=== PATIENT | female | born 1945 | race Caucasian/White ===

== ENCOUNTER 2019-03-18 14:45 | Observation (INO) | payer OTHER, MEDICARE ==
--- NOTE | 2019-03-18 15:23 | EDPHY ---
H & P Time Seen by Provider: 03/18/19 15:06 HPI/ROS: CHIEF COMPLAINT: Fall from horse HISTORY OF PRESENT ILLNESS: The patient is a 73-year-old female who presents emergency department after being thrown from her horse. She landed on her left side. Patient denies striking her head or losing consciousness. Patient complains primarily of left shoulder pain, left posterior rib pain, and left flank pain. Patient's pain is moderate. It becomes severe with movement. The patient was able to stand after the fall get back on her horse. Patient subsequently went to the bathroom and had gross hematuria. Patient denies chest pain or shortness of breath. She denies neck or back pain. REVIEW OF SYSTEMS: 10 systems were reveiwed and are negative with the exception of the elements mentioned in the history of present illness. Past Medical/Surgical History: Denies Smoking Status: Never smoked Physical Exam: Vitals noted GENERAL: Mild acute distress, alert. HEAD: No evidence of trauma. EYES: PERRLA, EOMI, normal to inspection. ENT: Airway intact, no dental or oral injury, no malocclusion, no hemotympanum , normal external examination. NECK: The trachea is midline. There is no crepitus. The C-spine is nontender. NEXUS criteria is negative (no midline tenderness, no distracting injury, no altered mental status, no recent alcohol use, no focal neurologic deficit). RESPIRATORY: [Clear to auscultation bilaterally, no rales, rhonchi or wheezing. Chest wall: Normal to appearance. Mild left lateral/posterior chest wall tenderness to palpation CVS: Regular rate and rhythm, no rubs, murmurs, or gallops. ABDOMEN: Soft, left upper quadrant tenderness to palpation with no rebound or guarding, nondistended, no bruising or abrasions. Pelvis: Stable. No tenderness palpation. GENITAL/RECTAL: Normal external exam. BACK: Normal to inspection, no spinal tenderness, no spinal step off, no notable bruising or abrasions. SKIN: Normal color, warm. Mild diaphoresis. No pallor. EXTREMITIES: Right upper extremity: Atraumatic. No visible signs of trauma. No tenderness palpation. Neurovascular intact distally. Left upper extremity: Patient has swelling over her left clavicle. There is mild tenderness palpation at the AC joint and clavicle. No humeral head tenderness to palpation. Neurovascular intact distally. Right lower extremity: Atraumatic. No visible signs of trauma. No tenderness palpation. Neurovascular intact distally. Left lower extremity: Atraumatic. No visible signs of trauma. No tenderness palpation. Neurovascular intact distally. NEURO/PSYCH: Alert and oriented x 3, GCS 15, normal mood and affect, normal motor sensory exam. Constitutional: Initial Vital Signs Temperature (C) 36.6 C 03/18/19 15:03 Heart Rate 75 03/18/19 15:03 Respiratory Rate 16 03/18/19 15:03 Blood Pressure 150/87 H 03/18/19 15:03 O2 Sat (%) 93 03/18/19 15:03 O2 Delivery Mode Room Air Allergies/Adverse Reactions: No Known Allergies Allergy (Unverified 03/18/19 15:16) Home Medications: Medication Instructions Recorded Hydrocodone/APAP 5/325 [Roll 1 - 2 tab PO Q4 #13 tab 03/18/19 5/325 (RX)] Ondansetron Odt [Zofran Odt 4 mg 4 mg PO Q4PRN PRN #7 tab 03/18/19 (*)] Medical Decision Making - Diagnostics Imaging Results: Imaging Impressions Abdomen CT 03/18/19 15:19 Impression: 1. Contusion around the left renal pelvis and proximal ureter. There is no active extravasation or urinoma. Primary differential is posttraumatic bruising , or perhaps leakage from one of the parapelvic cysts with inflammation to the pelvis and proximal ureter. 2. No hydronephrosis or obstruction. 3. No evidence for solid organ laceration. 4. Contusion to the subcutaneous tissue at the left flank and buttock region. 5. Incidental sigmoid diverticulosis and the left gonadal vein pelvic varices. Findings and recommendations discussed with Dr. Shantel Paris at 4:00 PM, . Final report concurs with initial preliminary interpretation. Chest CT 03/18/19 15:19 Impression: 1. No definite acute abnormalities. 2. Tiny bony fragment off of the superior posterior aspect of the left glenoid, possibly representing subacute to old avulsion fragment. Findings and recommendations discussed with Dr. Shantel Paris at 4:20 PM, . Final report concurs with initial preliminary interpretation. Shoulder X-Ray 03/18/19 16:19 Impression: 1. Acute minimally displaced left 3rd and 4th rib fractures. No apical pneumothorax. 2. No acute clavicle fracture or AC separation. Cervical Spine CT 03/18/19 17:29 Impression: Multilevel degenerative change described above. Nothing acute identified. If there is concern for instability, then consider lateral flexion-extension views and/or cervical MRI. Results discussed with Dr. Paris at 5:53 PM. General information for patients regarding this examination can be found at [email or web address]. If you have questions or comments about this report, please contact me at [phone](hospital) or [phone] (cell). Procedures: Procedure: Trauma ultrasound. Limited echocardiogram for pericardial effusion. Limited bedside ultrasound was performed and interpreted by myself for the indication of: thoracoabdominal trauma utilizing the thoracoabdominal emergency ultrasound protocol. Limited transthoracic echocardiogram: The pericardium was visualized and found to be negative for pericardial fluid. The study was negative for pericardial effusion. Limited abdominal ultrasound for blunt abdominal trauma. 1) The right upper quadrant was visualized and was found to be negative for intraperitoneal fluid. 2) The left upper quadrant was visualized and found to be negative for intraperitoneal fluid. The study was felt to be negative for free intraperitoneal fluid. Limited pelvic ultrasound was conducted for abdominal trauma. The bladder was visualized and did not reveal an anechoic area outside of the adjacent urinary bladder. The study was felt to be negative for free intraperitoneal fluid. ED Course/Re-evaluation: The in the emergency department I met the patient on arrival to the room. I was called in by the nursing staff. Initial vital signs were stable. Bedside ultrasound was performed after my initial evaluation. Fast was negative. I discussed the plan with the patient. I answered all her questions. CT of the chest abdomen and pelvis were ordered. Laboratory studies were ordered. The patient's white count was mildly elevated 14,000. Hematocrit was normal. Chemistry panel is notable for an elevated potassium of 5.3. CT of the chest, abdomen and pelvis: Please refer the dictated report by Dr. Luz Rich. Patient did have inflammation surrounding her left kidney. There is no chemo extravasation. Patient also had soft tissue contusion on the left flank. I discussed the results with Dr. Ny from the trauma service. He will come and evaluate the patient. Discussed the results with the patient. I answered all her questions. Dr. Ny evaluated the patient. He felt that there were left-sided rib fractures. He discussed this with Dr. Rich. He recommended CT of cervical spine. This was ordered. He also recommend the patient receive normal saline bolus. Cervical spine CT: Please refer the dictated report by Dr. Ortega. No acute disease. Patient produce urine sample. There is no chemo hematuria. The UA showed positive red cells. Shoulder x-ray: The patient has notable rib fractures but no clavicle fracture or AC separation. I discussed the result with Dr. Ny. He recommended patient receive additional normal saline and then discharge. Patient was ambulated for potential discharge. However she became lightheaded and dizzy. She nearly fainted. She came mildly diaphoretic. I discussed this with Dr. Ny. The patient will be admitted for further observation. Differential Diagnosis: My differential includes but is not limited to kidney injury, splenic injury, pneumothorax, hemothorax, rib fracture, calcar fracture, shoulder fracture, pelvic injury - Data Points Laboratory Results: Laboratory Results 03/18/19 15:15 03/18/19 15:15 03/18/19 03/18/19 03/18/19 18:35 16:20 15:20 WBC RBC Hgb POC Hgb 14.6 gm/dL gm/dL (12.6-16.3) Hct POC Hct 43 % % (38-47) MCV MCH MCHC RDW Plt Count MPV Neut % (Auto) Lymph % (Auto) [place] % (Auto) Eos % (Auto) Baso % (Auto) Nucleat RBC Rel Count Absolute Neuts (auto) Absolute Lymphs (auto) Absolute Monos (auto) Absolute Eos (auto) Absolute Basos (auto) Absolute Nucleated RBC Immature Gran % Seg Neutrophils % Band Neutrophils % Lymphocytes % Monocytes % Eosinophils % Basophils % Metamyelocytes % Myelocytes % Promyelocytes % Blast Cells % Immature Gran # Absolute Seg Neuts Absolute Band Neuts Absolute Lymphocytes Absolute Monocytes Absolute Eosinophils Absolute Basophils Absolute Metamyelocyte Absolute Myelocytes Absolute Promyelocytes Absolute Plasma Cells Nucleated RBCs RBC/WBC/PLT Morphology Absolute Blast Cells Plasma Cells % Platelet Estimate PT INR APTT POC Sodium 138 mEq/L mEq/L (135-145) Sodium POC Potassium 5.3 mEq/L H mEq/L (3.3-5.0) Potassium POC Chloride 105 mEq/L mEq/L (97-110) Chloride Carbon Dioxide POC Total CO2 25 mEq/L mEq/L (22-31) Anion Gap POC BUN 20 mg/dL mg/dL (7-23) BUN Creatinine POC Creatinine 0.7 mg/dL mg/dL (0.6-1.0) Estimated GFR Glucose POC Glucose 156 mg/dL H mg/dL (70-100) Calcium Urine Color YELLOW Urine Appearance MODERATELY TURBID Urine pH 6.0 (5.0-7.5) Ur Specific Damon > 1.060 H (1.002-1.030) Urine Protein 1+ H (NEGATIVE) Urine Ketones 1+ H (NEGATIVE) Urine Blood 3+ H (NEGATIVE) Urine Nitrate NEGATIVE (NEGATIVE) Urine Bilirubin NEGATIVE (NEGATIVE) Urine Urobilinogen NEGATIVE EU EU (0.2-1.0) Ur Leukocyte Esterase NEGATIVE (NEGATIVE) Urine RBC 50-182 /hpf H /hpf (0-3) Urine WBC 0-1 /hpf /hpf (0-3) Ur Epithelial Cells NONE SEEN /lpf /lpf (NONE-1+) Urine Mucus TRACE /lpf /lpf (NONE-1+) Urine Yeast PRESENT /hpf /hpf (NONE SEEN) Urine Glucose NEGATIVE (NEGATIVE) Patient ABO/Rh O POSITIVE Antibody Screen NEGATIVE 03/18/19 03/18/19 03/18/19 15:15 15:15 15:15 WBC 13.91 10^3/uL H 10^3/uL (3.80-9.50) RBC 4.25 10^6/uL 10^6/uL (4.18-5.33) Hgb 13.7 g/dL g/dL (12.6-16.3) POC Hgb Hct 39.9 % % (38.0-47.0) POC Hct MCV 93.9 fL fL (81.5-99.8) MCH 32.2 pg pg (27.9-34.1) MCHC 34.3 g/dL g/dL (32.4-36.7) RDW 12.7 % % (11.5-15.2) Plt Count 180 10^3/uL 10^3/uL (150-400) MPV 10.8 fL fL (8.7-11.7) Neut % (Auto) Not Reported Lymph % (Auto) Not Reported [place] % (Auto) Not Reported Eos % (Auto) Not Reported Baso % (Auto) Not Reported Nucleat RBC Rel Count Not Reported Absolute Neuts (auto) Not Reported Absolute Lymphs (auto) Not Reported Absolute Monos (auto) Not Reported Absolute Eos (auto) Not Reported Absolute Basos (auto) Not Reported Absolute Nucleated RBC Not Reported Immature Gran % Not Reported Seg Neutrophils % 79.6 % % Band Neutrophils % 5.1 % % Lymphocytes % 8.2 % % Monocytes % 7.1 % % Eosinophils % 0.0 % % Basophils % 0.0 % % Metamyelocytes % 0.0 % % Myelocytes % 0.0 % % Promyelocytes % 0.0 % % Blast Cells % 0.0 % % Immature Gran # Not Reported Absolute Seg Neuts 11.07 10^3/uL H 10^3/uL (1.70-6.50) Absolute Band Neuts 0.71 10^3/uL H 10^3/uL (0.00-0.70) Absolute Lymphocytes 1.14 10^3/uL 10^3/uL (1.00-3.00) Absolute Monocytes 0.99 10^3/uL H 10^3/uL (0.30-0.80) Absolute Eosinophils 0.00 10^3/uL L 10^3/uL (0.03-0.40) Absolute Basophils 0.00 10^3/uL L 10^3/uL (0.02-0.10) Absolute Metamyelocyte 0.00 10^3/mL 10^3/mL (0.00-0.00) Absolute Myelocytes 0.00 10^3/mL 10^3/mL (0.00-0.00) Absolute Promyelocytes 0.00 10^3/uL 10^3/uL (0.00-0.00) Absolute Plasma Cells 0.00 10^3/uL 10^3/uL (0.00-0.00) Nucleated RBCs 0 /100 WBC /100 WBC (0-0) RBC/WBC/PLT Morphology NORMAL (NORMAL) Absolute Blast Cells 0.00 10^3/uL 10^3/uL (0.00-0.00) Plasma Cells % 0.0 % % Platelet Estimate ADEQUATE (ADEQ) PT 13.3 SEC SEC (12.0-15.0) INR 1.05 (0.83-1.16) APTT 25.2 SEC SEC (23.0-38.0) POC Sodium Sodium 136 mEq/L mEq/L (135-145) POC Potassium Potassium 4.2 mEq/L mEq/L (3.5-5.2) POC Chloride Chloride 104 mEq/L mEq/L (97-110) Carbon Dioxide 22 mEq/l mEq/l (22-31) POC Total CO2 Anion Gap 10 mEq/L mEq/L (6-14) POC BUN BUN 17 mg/dL mg/dL (7-23) Creatinine 0.7 mg/dL mg/dL (0.6-1.0) POC Creatinine Estimated GFR > 60 Glucose 150 mg/dL H mg/dL (70-100) POC Glucose Calcium 9.0 mg/dL mg/dL (8.5-10.4) Urine Color Urine Appearance Urine pH Ur Specific Damon Urine Protein Urine Ketones Urine Blood Urine Nitrate Urine Bilirubin Urine Urobilinogen Ur Leukocyte Esterase Urine RBC Urine WBC Ur Epithelial Cells Urine Mucus Urine Yeast Urine Glucose Patient ABO/Rh Antibody Screen Medications Given: Discontinued Medications Hydrocodone Bitart/Acetaminophen (Roll 5/325mg Prepack#6) 1 btl TAKEHOME EDNOW ONE Stop: 03/18/19 19:53 Last Admin: 03/18/19 20:17 Dose: Not Given Sodium Chloride (Ns) 1,000 mls @ 0 mls/hr IV ONCE ONE; Wide Open PRN Reason: Protocol Stop: 03/18/19 17:30 Last Admin: 03/18/19 17:53 Dose: 1,000 mls Sodium Chloride (Ns) 500 mls @ 0 mls/hr IV EDNOW ONE; Wide Open PRN Reason: Protocol Stop: 03/18/19 19:22 Last Admin: 03/18/19 19:29 Dose: 500 mls Ondansetron HCl (Zofran Odt 4 Mg Prepack#2) 1 btl TAKEHOME EDNOW ONE Stop: 03/18/19 19:54 Last Admin: 03/18/19 20:17 Dose: Not Given Point of Care Test Results: Chemistry 03/18/19 15:20 POC Sodium 138 mEq/L mEq/L (135-145) POC Potassium 5.3 mEq/L H mEq/L (3.3-5.0) POC Chloride 105 mEq/L mEq/L (97-110) POC Total CO2 25 mEq/L mEq/L (22-31) POC BUN 20 mg/dL mg/dL (7-23) POC Creatinine 0.7 mg/dL mg/dL (0.6-1.0) POC Glucose 156 mg/dL H mg/dL (70-100) ISTAT H&H 03/18/19 15:20 POC Hgb 14.6 gm/dL gm/dL (12.6-16.3) POC Hct 43 % % (38-47) Departure [facility] Clinical Impression: Hematoma of flank Rib fractures Qualifiers: Encounter type: initial encounter Rib fracture type: multiple ribs Fracture type: closed Laterality: left Qualified Code(s): S22.42XA - Multiple fractures of ribs, left side, initial encounter for closed fracture Renal injury, closed Qualifiers: Encounter type: initial encounter Laterality: left Qualified Code(s): S37.002A - Unspecified injury of left kidney, initial encounter Condition: Good Instructions: Hydrocodone/Acetaminophen (By mouth), Ondansetron (By mouth), Acute Kidney Injury (DC), Rib Fracture (ED) Additional Instructions: Return with increasing pain, difficulty urinating, fever, chills, shortness of breath or any other concerns. Use your incentive spirometer 5 times daily. Stay well hydrated. Referrals: Beth Roberts MD [Primary Care Provider] - 2-3 days, call for appt. Prescriptions: Hydrocodone/APAP 5/325 [Roll 5/325 (RX)] 1 - 2 tab PO Q4 #13 tab Ondansetron Odt [Zofran Odt 4 mg (*)] 4 mg PO Q4PRN PRN #7 tab PRN Reason: For Nausea & Vomiting
[2019-03-18 15:28] LABS: PLATELET COUNT 180 10^3/uL (150-400)
[2019-03-18] MEDS ORDERED: IOPAMIDOL (ISOVUE-300) 100 ML BTL ONE (15:30)
[2019-03-18 15:44] LABS: INR 1.05 (0.83-1.16); PROTIME(PATIENT) 13.3 SEC (12.0-15.0)
[2019-03-18] MEDS ORDERED: NS 1,000 ML IV ONE (17:29)
[2019-03-18] MEDS ORDERED: NS 500 ML IV ONE (19:21)
--- NOTE | 2019-03-18 19:33 | GCON ---
[f rep st] CONSULTATION /History and Physical REFERRING PHYSICIAN: Shantel Paris MD REASON FOR CONSULTATION: Fall from horse. HISTORY: Patient is a 73-year-old female who was riding her 16-hand horse today with a helmet when she came to a trail intersection. The horse went one way and she went the other. She fell to the ground and laid there for about 5 to 10 minutes. UPS man was driving by and noticed that she has remained on the ground and he came over helped back onto a horse. She complains of left buttocks pain, left shoulder pain, left rib pain and some neck pain. Early on before she arrived in the ER, she complained of hematuria. CAT scan was done and x-rays were done, which showed no evidence of injuries to her neck. There is a contusion over the right shoulder and an old avulsion fracture of the glenoid, but nothing acute. She has lateral fractures of ribs 3 and 4, minimally displaced. Her CAT scan her abdomen show her kidneys to be intact. Bilateral renal cysts are identified. She has yet to void since admission to the ER. SOCIAL HISTORY: She does not smoke. She drinks occasionally. ALLERGIES: She has no known drug allergies. MEDICATIONS: Her only medication is occasional Advil. PAST SURGICAL HISTORY: Surgeries have included an eye surgery (unclear as to what was done) and a right complete knee replacement. No history rheumatic fever, tuberculosis, hepatitis, or transfusions. REVIEW OF SYSTEMS: She wears lenses for visual correction. Her last mammogram was 30 years ago. She did have 1 colonoscopy at age 49 and none since. There are no limits on her activities. No history of steroid use. PHYSICAL EXAMINATION: GENERAL: She is awake, alert, quite pleasant. Her complaints were minimal. NEUROLOGIC: She is oriented to person, place, and time. GCS is 15. There are no focal lateralizing neurologic findings. SKULL: Her skull is normocephalic and atraumatic with pupils equal, round, reactive to light and accommodation. Extraocular movements intact. She is not in a C-collar at this point. NECK: Minimally tender when she flexes her chin towards her chest. As mentioned above, the CT was negative. UPPER EXTREMITIES: The right upper extremity has no abnormalities. No limitations. Left upper extremity is tender near the acromioclavicular junction. CHEST: Stable to AP and lateral compression. BACK: Unremarkable. LUNGS: Clear to auscultation. CARDIAC: Exam shows S1, S2 to be normal. ABDOMEN: Hypoactive bowel sounds. Nontender to palpation. There is some tenderness over the left iliac crest. EXTREMITIES: Lower extremities are ranged and range of motion is normal. CT does show subcutaneous stranding in the left gluteal region, but no obvious fractures are identified. CT neck negative CXR/Chest CT left third and fourth ribs fractured but no PTX CT Abdomen shows only a gluteal contusion. I recommend that we hydrate this patient and if her urine has cleared, I think she will be set for discharge with appropriate medications. If she still has grossly bloody urine, admission for hydration therapy to minimize the chance of clot formation and urinary retention. Addendum: Urine not clear. Light headed with ambulation. Will admit /[id number]/MODL MTDD
[2019-03-18] MEDS: ONDANSETRON 4MG PREPACK#2 BTL TAKEHOME ONE ×2 (20:00→20:17)
[2019-03-18] MEDS: HYDROCOD/APAP 5/325 PREPACK#6 BTL TAKEHOME ONE ×2 (20:01→20:17)
[2019-03-18] MEDS ORDERED: ONDANSETRON 4 MG/2 ML VIAL IVP PRN (20:47)
[2019-03-18] MEDS ORDERED: KETOROLAC 15 MG/1 ML SDV ONE (21:00)
[2019-03-18] MEDS ORDERED: ACETAMINOPHEN 500 MG TAB ONE (21:01)
[2019-03-18] MEDS ORDERED: HYDROmorphONE/DILAUDID 1 MG/ML INJ IVP PRN (21:06)
[2019-03-18] MEDS ORDERED: LIDOCAINE 4%/MENTHOL 1% PATCH TD SCH (21:15)
[2019-03-18] MEDS: ACETAMINOPHEN 500 MG TAB PO SCH (21:19)
[2019-03-18] MEDS: LR 1,000 ML IV SCH (22:47)
[2019-03-19] MEDS: KETOROLAC 15 MG/1 ML SDV IVP SCH ×2 (02:54→10:02)
[2019-03-19 05:00] LABS: PLATELET COUNT 172 10^3/uL (150-400)
[2019-03-19] MEDS: ACETAMINOPHEN 500 MG TAB PO SCH (05:12)
[2019-03-19] MEDS: LR 1,000 ML IV SCH (05:45)
--- NOTE | 2019-03-19 08:58 | TRAUMAPN ---
Trauma Progress Note Assessment/Plan: 73 Y F fall from horse with gluteal contusion, L 3rd and 4th rib fractures without PTX, hematuria. No head strike. Tertiary survey. Hematuria resolved. H&H slightly decreased but suspect this dilutional as she was hydrated with IVF to assist with clearance of hematuria. CXR pending. Pulmonary toilet 2/2 rib fractures. No new pain complaints. Just sore. Dispo: likely home today if CXR ok and cleared by Dr. Looney. S: sore "on my rump" (buttocks, lower back). Urine now clear yellow. No SOB. Difficult to go from laying down to sitting up but then able to walk without difficulty she says. O: alert, nad ncat, pupils equal and round ctab, good fremitus, no w/r/r rrr abd soft, nt ext wwp, no edema, nt, no abrasions Objective: Vital Signs Temp Pulse Resp BP Pulse Ox 36.9 C 68 18 147/67 H 92 03/19/19 08:00 03/19/19 08:00 03/19/19 08:00 03/19/19 08:00 03/19/19 08:00 Laboratory Results 03/19/19 04:11 03/19/19 04:11 03/18/19 03/19/19 03/20/19 05:59 05:59 05:59 Intake Total 3173 400 Output Total 600 300 Balance 2573 100 PT 13.3 SEC (12.0-15.0) 03/18/19 15:15 INR 1.05 (0.83-1.16) 03/18/19 15:15
[2019-03-19] MEDS ORDERED: PATCH REMOVAL 1 EA PATCH TD SCH (09:00)
[2019-03-19 11:45] VITALS: BP 138/61
--- NOTE | 2019-03-19 15:36 | ASMTLACE ---
EDWAR Length of stay for Answers: 2 days current admission Acuity / Level of Answers: No Care: Did the patient have an inpatient admission? # of Emergency department Answers: 1-2 visits in the last 6 months Score: 3 Date Signed: 03/19/2019 03:35 PM Electronically Signed By:HILARY Cortez
--- NOTE | 2019-03-19 15:37 | ASMTCMCOM ---
CM Note CM Note Notes: Pt has rib fxs after being thrown from her horse. Pt cleared for home by PT/OT/BUSINESS OFFICE COORDINATOR. Pt declines follow up appointment set up with [facility] PCP Armando. Pt medically stable for d/c. Date Signed: 03/19/2019 03:37 PM Electronically Signed By:HILARY Cortez
[2019-03-19] MEDS ORDERED: KETOROLAC 15 MG/1 ML SDV IVP SCH (21:00)
== END 2019-03-19 15:20 | disposition home or self-care (01) ==
LOC: F3N 22:12
PROVIDERS: ADMIT Surgery; ATTEND Surgery
DX: S22.42XA Multiple fractures of ribs, left side, initial encounter for closed fracture (principal); S40.011A Contusion of right shoulder, initial encounter; S37.002A Unspecified injury of left kidney, initial encounter; V80.010A Animal-rider injured by fall from or being thrown from horse in noncollision accident, initial encounter; Y93.52 Activity, horseback riding; Y92.89 Other specified places as the place of occurrence of the external cause; E86.9 Volume depletion, unspecified
CPT/HCPCS: 71046; 71260; 72125; 73030; 74177; 92523; 96361; 96374; 97165; 97535; 99285; G0378; J1885; Q9967; 82435-PO; 82565-PO; 82947-PO; 84132-PO; 84295-PO; 84520-PO; 85014-ER

== ENCOUNTER → 2019-03-21 | Outpatient (CLI) | payer OTHER, MEDICARE | LOC: FIMAGING 10:40 | PROVIDERS: ATTEND Surgery | DX: S22.42XD Multiple fractures of ribs, left side, subsequent encounter for fracture with routine healing (principal) ==